=== PATIENT | female | born 1970 | race African-American/Black ===

== ENCOUNTER 2019-09-13 19:52 | Emergency (ER) | payer MEDICAID ==
[~2019-09-13] VITALS: Ht 165.1 cm; Wt 61.2 kg
[2019-09-13] MEDS ORDERED: ASPirin 81 mg TAB PO ONE (20:15)
[2019-09-13] MEDS ORDERED: MORPHINE SULFATE 4 MG/ML SYR/VIAL IV ONE (20:15)
[2019-09-13] MEDS ORDERED: NITROGLYCERIN 0.4 MG SL TAB SL PRN (20:15)
[2019-09-13 20:45] LABS: Basophils # (auto) 0 uL; Basophils % (auto) 0.5 % (0.0-2.0); Eosinophils # (auto) 0.1 uL; Eosinophils % (auto) 2.6 % (0.0-7.0); Hematocrit 40.8 % (36.0-46.0); Hemoglobin 13.9 g/dL (12.2-16.2); Lymphocytes # (auto) 2.2 uL; Lymphocytes % (auto) 50.1 % (10.0-50.0); Mean Corpuscular Hemoglobin 32.4 pg (28.0-32.0); Mean Corpuscular Volume 95.3 fL (80.0-100.0); Monocytes # (auto) 0.3 uL; Neutrophils # (auto) 1.7 uL; Neutrophils % (auto) 39.8 % (37.0-80.0); Nucleated Red Blood Cells % 0.1 %; Platelet Count (auto) 248 10^3/uL (140-450); Red Blood Cells 4.28 10^6/uL (4.0-5.20); Red Cell Distribution Width 13.8 % (11.8-14.3); White Blood Cell 4.4 10^3/uL (4.4-10.8)
[2019-09-13 21:02] LABS: INR 0.95 (0.9-1.15); Partial Thromboplastin Time 24.5 sec (23.64-32.05)
[2019-09-13 21:03] LABS: Alanine Aminotransferase 25 U/L (13-56); Albumin 3.7 g/dL (3.4-5.0); Anion Gap 6 (5-15); Aspartate Aminotransferase 16 U/L (15-37); BUN/Creatinine Ratio 15.2; Blood Urea Nitrogen 22 mg/dL (7-18); Carbon Dioxide 29 mmol/L (21-32); Chloride 105 mmol/L (98-107); GFR African American 50 mL/min; GFR Non-African American 41 mL/min; Glucose 113 mg/dL (74-106); Potassium 3.9 mmol/L (3.5-5.1); Sodium 140 mmol/L (136-145)
[2019-09-13 21:12] LABS: Alkaline Phosphatase 91 U/L (45-117); Bilirubin, Total 0.3 mg/dL (0.2-1.0); Total Protein 7.2 g/dL (6.4-8.2)
[2019-09-13 23:57] LABS: Urine Bacteria FEW /hpf (None Seen); Urine Blood Negative /uL (Negative); Urine Specific Gravity 1.025 (1.001-1.035); Urine WBC 3 /hpf (0 - 5)
[2019-09-14 00:13] LABS: Alcohol, Urine < 3.0 mg/dL (0-5); Amphetamine Screen, Urine NEGATIVE (NEGATIVE); Barbiturate Scree,Urine NEGATIVE (NEGATIVE); Benzodiazephine Screen, Urine NEGATIVE (NEGATIVE); Cocaine Screen, Urine POSITIVE (NEGATIVE); Opiate Scree,Urine NEGATIVE (NEGATIVE); Phencyclidine Screen, Urine NEGATIVE (NEGATIVE)
[2019-09-14 00:21] LABS: Cannabinoid Screen, Urine POSITIVE (NEGATIVE)
[2019-09-14 01:14] VITALS: BP 105/63
== END 2019-09-14 01:15 | disposition home or self-care (01) ==
LOC: EDBD 19:52 → ER 19:57
DX: R07.89 Other chest pain (principal); N18.9 Chronic kidney disease, unspecified; G89.29 Other chronic pain; F17.210 Nicotine dependence, cigarettes, uncomplicated; F12.10 Cannabis abuse, uncomplicated; F14.10 Cocaine abuse, uncomplicated; Z88.1 Allergy status to other antibiotic agents; Z88.8 Allergy status to other drugs, medicaments and biological substances
CPT/HCPCS: 36415; 71045; 80053; 80307; 81001; 83880; 84484; 84702; 85025; 85379; 85610; 85730

== ENCOUNTER 2019-09-29 16:47 | Emergency (ER) | payer MEDICAID ==
[~2019-09-29] VITALS: Ht 165.1 cm; Wt 59.0 kg
[2019-09-29 18:10] LABS: Alcohol, Urine < 3.0 mg/dL (0-5); Amphetamine Screen, Urine NEGATIVE (NEGATIVE); Barbiturate Scree,Urine NEGATIVE (NEGATIVE); Benzodiazephine Screen, Urine NEGATIVE (NEGATIVE); Cannabinoid Screen, Urine NEGATIVE (NEGATIVE); Cocaine Screen, Urine NEGATIVE (NEGATIVE); Opiate Scree,Urine NEGATIVE (NEGATIVE); Phencyclidine Screen, Urine NEGATIVE (NEGATIVE)
[2019-09-29 18:32] LABS: Urine Bacteria NONE SEEN /hpf (None Seen); Urine Blood Negative /uL (Negative); Urine Specific Gravity 1.024 (1.001-1.035); Urine WBC 4 /hpf (0 - 5)
[2019-09-29] MEDS ORDERED: methylPREDNISolone SOD SUCC 125 MG/2 ML VL IM ONE (19:30)
[2019-09-29 20:13] VITALS: BP 129/85
== END 2019-09-29 20:30 | disposition home or self-care (01) ==
LOC: ER 16:47
DX: M06.9 Rheumatoid arthritis, unspecified (principal); M54.5 Low back pain; M25.561 Pain in right knee; M25.562 Pain in left knee; M25.511 Pain in right shoulder; M25.512 Pain in left shoulder; Z88.8 Allergy status to other drugs, medicaments and biological substances
CPT/HCPCS: 80307; 81001; 96372; 99283; J2930

== ENCOUNTER 2023-06-26 13:45 | Emergency (ER) | payer MEDICAID ==
[~2023-06-26] VITALS: Ht 167.6 cm; Wt 63.2 kg
[2023-06-26 15:12] VITALS: BP 152/100; PULSE 63; RESP 16; TEMP 98.3; O2SAT 100
[2023-06-26] MEDS ORDERED: KETOROLAC TROMETH 60MG/2ML VIAL IM ONE (15:15)
[2023-06-26] MEDS ORDERED: METH-1181 PO (15:18)
[2023-06-26] MEDS ORDERED: NAP500T PO (15:18)
[2023-06-26] MEDS ORDERED: HYDROcodone-ACET 5/325MG TAB PO ONE (15:30)
== END 2023-06-26 15:35 | disposition home or self-care (01) ==
LOC: EDUNIT# 13:45 → EDBD 13:45 → ER 13:45
DX: S46.911A Strain of unspecified muscle, fascia and tendon at shoulder and upper arm level, right arm, initial encounter (principal); F41.9 Anxiety disorder, unspecified; F17.210 Nicotine dependence, cigarettes, uncomplicated; F12.90 Cannabis use, unspecified, uncomplicated; F15.90 Other stimulant use, unspecified, uncomplicated; Z88.8 Allergy status to other drugs, medicaments and biological substances; Y04.2XXA Assault by strike against or bumped into by another person, initial encounter; Y93.89 Activity, other specified; Y92.89 Other specified places as the place of occurrence of the external cause; Y99.8 Other external cause status
CPT/HCPCS: 73030

== ENCOUNTER 2023-07-23 10:40 | Emergency (ER) | payer MEDICAID ==
[~2023-07-23] VITALS: Ht 165.1 cm; Wt 53.8 kg
[~2023-07-23 10:40] MED LIST: METH-1181 PO; NAP500T PO
[2023-07-23 12:11] LABS: Alanine Aminotransferase 19 U/L (7-40); Albumin 4.9 g/dL (3.2-4.8); Alkaline Phosphatase 97 U/L (46-116); Anion Gap 5 (5-15); Aspartate Aminotransferase 16 U/L (13-40); BUN/Creatinine Ratio 23.1 (10.0-20.0); Blood Urea Nitrogen 21 mg/dL (9-23); Calcium 9.3 mg/dL (8.7-10.4); Carbon Dioxide 31 mmol/L (20-30); Chloride 105 mmol/L (98-107); Potassium 3.5 mmol/L (3.5-5.1); Sodium 141 mmol/L (136-145)
[2023-07-23 12:12] LABS: Bilirubin, Total 0.8 mg/dL (0.2-1.0)
[2023-07-23 12:19] LABS: Glucose 45 mg/dL (74-106)
[2023-07-23] MEDS ORDERED: SODIUM CHLORIDE 0.9% 1,000 ML IV ONE (12:45)
[2023-07-23 13:00] VITALS: PULSE 60; RESP 15; O2SAT 95
[2023-07-23 13:09] LABS: Basophils # (auto) 0 10 ^3/uL (0-0.2); Basophils % (auto) 0.8 % (0.0-2.0); Eosinophils # (auto) 0.1 10 ^3/uL (0-0.8); Eosinophils % (auto) 1.7 % (0.0-7.0); Hematocrit 39.9 % (36.0-46.0); Hemoglobin 13.4 g/dL (12.2-16.2); Lymphocytes # (auto) 1.6 10 ^3/uL (0.4-5.4); Lymphocytes % (auto) 46.8 % (10.0-50.0); Mean Corpuscular Hgb Conc. 33.7 g/dL (32.0-36.0); Mean Corpuscular Volume 95.2 fL (80.0-100.0); Monocytes # (auto) 0.4 10 ^3/uL (0-1.3); Monocytes % (auto) 12.5 % (0.0-12.0); Neutrophils # (auto) 1.3 10 ^3/uL (1.6-8.6); Neutrophils % (auto) 38.2 % (37.0-80.0); Nucleated Red Blood Cells % 0.1 %; Red Blood Cells 4.19 10^6/uL (4.0-5.20); Red Cell Distribution Width 14.3 % (11.8-14.3); White Blood Cell 3.4 10^3/uL (4.4-10.8)
[2023-07-23 13:53] VITALS: BP 106/58; PULSE 125; RESP 66; TEMP 97.6; O2SAT 96
== END 2023-07-23 18:00 | disposition home or self-care (01) ==
LOC: ER 10:40
DX: E16.2 Hypoglycemia, unspecified (principal); M79.604 Pain in right leg; M79.605 Pain in left leg; F17.210 Nicotine dependence, cigarettes, uncomplicated; Z79.899 Other long term (current) drug therapy; Z88.1 Allergy status to other antibiotic agents; Z88.8 Allergy status to other drugs, medicaments and biological substances
CPT/HCPCS: 36415; 80053; 82962; 83036; 85025; 93970; 96360; 96361; 99284; J7030

== ENCOUNTER 2023-09-17 07:02 | Emergency (ER) | payer MEDICAID ==
[~2023-09-17] VITALS: Ht 165.1 cm; Wt 60.0 kg
[2023-09-17] MEDS ORDERED: ACETAMINOPHEN 500 MG TAB PO ONE (08:45)
[2023-09-17] MEDS ORDERED: DexAMETHasone SOD PHOS 10MG/1ML VIAL INJ IM ONE (08:45)
[2023-09-17 09:00] VITALS: BP 116/65; PULSE 98; RESP 18; O2SAT 98
[2023-09-17 09:20] LABS: COVID19 ANTIGEN SOFIA FIA NEGATIVE (NEGATIVE)
[2023-09-17 09:24] LABS: Rapid Influenza A Positive (Negative); Rapid Influenza B Negative (Negative)
[2023-09-17] MEDS ORDERED: OSEL75CA5 PO (09:36)
[2023-09-17] MEDS ORDERED: ACET500T58 PO (09:36)
[2023-09-17 09:45] VITALS: TEMP 99.9
== END 2023-09-17 09:52 | disposition home or self-care (01) ==
LOC: ER 07:02
DX: J10.1 Influenza due to other identified influenza virus with other respiratory manifestations (principal); F17.210 Nicotine dependence, cigarettes, uncomplicated; Z20.822 Contact with and (suspected) exposure to COVID-19
CPT/HCPCS: 36415; 87426; 87804; 96372; 99283; J1100

== ENCOUNTER → 2025-06-19 | Emergency (ER) | payer MEDICAID ==
[~2025-06-19] VITALS: Ht 165.1 cm; Wt 54.4 kg
[~2025-06-19] MED LIST changes: +ACET500T58 PO; +OSEL75CA5 PO
[2025-06-19 20:56] VITALS: BP 164/85; PULSE 80; RESP 18; TEMP 97.9; O2SAT 96
== END | disposition left against medical advice (07) ==
LOC: ER 20:56
DX: M54.9 Dorsalgia, unspecified (principal); Z53.21 Procedure and treatment not carried out due to patient leaving prior to being seen by health care provider

== ENCOUNTER 2025-06-27 20:38 | Emergency (ER) | payer MEDICAID ==
[~2025-06-27] VITALS: Ht 165.1 cm; Wt 52.1 kg
[2025-06-27 20:39] VITALS: BP 139/75; PULSE 77; RESP 18; TEMP 98.4; O2SAT 97
[2025-06-27] MEDS: TETRACAINE HCL 0.5% OPTH(EYE) SOLN 4ML EACHEYE ONE (22:30)
[2025-06-27] MEDS: FLUORESCEIN SOD OPTH TEST STRIP EACHEYE ONE (22:30)
[2025-06-27] MEDS ORDERED: ERY05OO OP (22:32)
--- NOTE | 2025-06-27 22:32 | ED.PDOC ---
Eye-HPI HPI Comments 54-year-old female presents to ER with bilateral eye complaint x1 day. Patient reports that she woke up with redness, yellow crusty drainage and blurred vision to bilateral eyes this morning. She reports 10/10 pain to bilateral eyes and denies use of medications for current symptoms. Notes she's had similar symptoms in the past due to "pink eye". Denies skin changes, injury, use of contacts, double vision, headache, mouth pain or any further symptoms/complaints Chief Complaint: Eye Problem Time Seen by MD: 20:46 Primary Care Provider: KEN Reviewed Notes: Nurses Notes, Medications, Allergies Allergies: Coded Allergies: Nitrofurantoin (Verified Allergy, Intermediate, ITCHING, SWELLING, RASH, 11/25/13) Tetracyclines (Verified Allergy, Intermediate, ITCHING, SWELLING, HIVES, 11/25/13) Home Meds Active Scripts Erythromycin (Erythromycin) 5 Mg/Gm Oin, 1 MG OP 6XD for 7 Days, #1 OIN 1 Refill Prov:SACHA BLACKMON 06/27/25 Acetaminophen (Acetaminophen) 500 Mg Tab, 1000 MG PO Q6HPRN PRN for 10 Days, #80 TAB 0 Refills Prov:LUIS FELIPE RUBIO NP 09/17/23 Oseltamivir Phosphate (Tamiflu) 75 Mg Cap, 1 CAP PO BID for 5 Days, #10 CAP 0 Refills Prov:LUIS FELIPE RUBIO NP 09/17/23 Methocarbamol (Methocarbamol) 500 Mg Tab, 500 MG PO BID, #20 TAB Prov:MARIO ALBERTO BROOKS 06/26/23 Naproxen (NAPROSYN TABLET) 500 Mg Tb, 1 TAB PO BID, #30 TAB 1 Refill Prov:MARIO ALBERTO BROOKS 06/26/23 Information Source: Patient Mode of Arrival: Ambulatory Past Medical History PAST MEDICAL HISTORY: Anxiety, Arthritis Surgical History: Denies all surgeries CREDIT RISK MODELER History: No Pertinent CREDIT RISK MODELER History Family History Family History: Unknown Social History Smoker: Cigarettes, Less Than 1 Pack/Day Alcohol: Occasionally Drugs: Cocaine, Marijuana Lives In: Home Constitutional: denies: chills, diaphoresis, fatigue, fever, malaise, sweats, weakness, others EENTM: reports: others (As stated in HPI) Respiratory: denies: cough, hemoptysis, orthopnea, SOB at rest, shortness of breath, SOB with excertion, stridor, wheezing, others Cardiovascular: denies: chest pain, dizzy spells, diaphoresis, Dyspnea on exertion, edema, irregular heart beat, left arm pain, lightheadedness, palpitations, PND, syncope, others Gastrointestinal: denies: abdomen distended, abdominal pain, blood streaked bowels, constipated, diarrhea, dysphagia, difficulty swallowing, hematemesis, melena, nausea, poor appetite, poor fluid intake, rectal bleeding, rectal pain, vomiting, others Genitourinary: denies: abnormal vagina bleeding, burning, dyspareunia, dysuria, flank pain, frequency, hematuria, incontinence, pain, , vagina discharge, urgency, others Neurological: denies: dizziness, fainting, headache, left sided numbness, left sided weakness, numbness, paresthesia, pre-existing deficit, right sided numbness, right sided weakness, seizure, speech problems, tingling, tremors, weakness, others Musculoskeletal: denies: back pain, gout, joint pain, joint swelling, muscle pain, muscle stiffness, neck pain, others Integumetry: denies: bruises, change in color, change in hair/nails, dryness, laceration, lesions, lumps, rash, wounds, others Allergic/Immunocompromised: denies: Difficulty Healing, Frequent Infections, Hives, Itching, others Hematologic/Lymphatic: denies: anemia, blood clots, easy bleeding, easy bruising, swollen glands, others Endocrine: denies: excessive hunger, excessive sweating, excessive thirst, excessive urination, flushing, intolerance to cold, intolerance to heat, unexplained weight gain, unexplained weight loss, others Psychiatric: denies: anxiety, bipolar disorder, depression, hopeless, panic disorder, schizophrenia, sleepless, suicidal, others Physical Exam General Appearance: No Apparent Distress HEENT: PERRL/EOMI, Pharynx Normal, TMs Normal, Other ([place] examination bilateral eyes- subconjunctival injection and yellow crusty drainage noted, no foreign body/corneal ulceration appreciated. No skin changes to upper/lower eyelids appreciated. Visual acuity right eye- 20/40, visual acuity left eye- 20/20, visual acuity using both eyes - 20/20) Neck: Full Range of Motion, Non-Tender, Normal Respiratory: Chest Non-Tender, Lungs Clear, No Accessory Muscle Use, No Resp iratory Distress, Normal Breath Sounds Cardiovascular: No Murmur, No Gallop, Regular Rate/Rhythm Breast Exam: Deferred Gastrointestinal: NOT DONE Genitalia: Deferred Pelvic: Deferred Rectal: Deferred Extremities: Normal capillary refill, Normal range of motion Neurologic: Alert, rn pool II-XII nml as Tested, No Motor Deficits, Normal Affect, Normal Mood, No Sensory Deficits Cerebellar Function: Normal Reflexes: Normal Skin: Dry, Normal Color, Warm Lymphatic: No Adenopathy Was a procedure done? Was a procedure done?: No Sedation Sedation?: No EENT DIFF Eye: Corneal Abrasion, Corneal Ulceration, Foreign Body-Corneal, Orbital Cellulits, Periorbital Cellulits X-Ray, Labs, Meds, VS Vital Signs Date Time Temp Pulse Resp B/P (MAP) Pulse Ox O2 Delivery O2 Flow Rate FiO2 06/27/25 20:39 98.4 77 18 139/75 97 98.4 Importance of good hand hygiene discussed and advised Fluorescein stain ophthalmic ordered Tetracaine ophthalmic ordered Erythromycin ointment ordered Patient had improvement in symptoms and in no distress prior to discharge Advised to follow up with PCP and Ophthalmology in 1-2 days Patient verbalized understanding and agreeable with current plan of care Advised to return to ER immediately if symptoms worsen Time of 1ST Reevaluation: 22:32 Reevaluation 1ST: N/A Patient Education/Counseling: Diagnosis, Treatment, Prognosis, Need For Follow Up Family Education/Counseling: No Family Present SEPSIS Sepsis Screen Date sepsis recognized/suspect: Jun 27, 2025 Time Sepsis recognized/suspect: 2043 Recent Procedure: No On Antibiotic Therapy: No Respiratory Rate >20: No Heart Rate >90: No Temp<36 C (96.8 F) or >38.3 C: No SBP <90 or MAP <65 mmHG: No New Acute Mental Status Change: No Is the patient on CPAP, BIPAP,: No Vital Signs Date Time Temp Pulse Resp B/P (MAP) Pulse Ox O2 Delivery O2 Flow Rate FiO2 06/27/25 20:39 98.4 77 18 139/75 97 98.4 Departure 1 Departure Time of Disposition: 22:44 Impression: Primary Impression: Bacterial conjunctivitis of both eyes Disposition: HOME / SELF CARE / HOMELESS Condition: Stable e-Prescriptions Erythromycin (Erythromycin) 5 Mg/Gm Oin 1 MG OP 6XD for 7 Days, #1 OIN 1 Refill Prov: SACHA BLACKMON 06/27/25 Discharged With: Friend Critical Care Note Critical Care Time?: No Stability Stability form required: No Heart Score Heart Score: Heart Score Response (Comments) Value History N/A 0 EKG N/A 0 Age N/A 0 Risk Factors N/A 0 Troponin N/A 0 Total 0 SACHA BLACKMON Jun 27, 2025 22:32
[2025-06-27] MEDS: ERYTHROMY OPTH OINT 5mg/gm 1gm or 3.5gm tube OP ONE (22:45)
== END 2025-06-28 00:49 | disposition home or self-care (01) ==
LOC: ER 20:38
DX: H10.89 Other conjunctivitis (principal); F17.210 Nicotine dependence, cigarettes, uncomplicated; F10.90 Alcohol use, unspecified, uncomplicated; F12.90 Cannabis use, unspecified, uncomplicated; F14.19 Cocaine abuse with unspecified cocaine-induced disorder; M19.90 Unspecified osteoarthritis, unspecified site; Z88.1 Allergy status to other antibiotic agents; Z79.899 Other long term (current) drug therapy